=== PATIENT | female | born 1990 | race Two or more races ===

== ENCOUNTER 2017-01-28 20:18 | Emergency (ER) | payer SELFPAY ==
[~2017-01-28] VITALS: Ht 152.4 cm; Wt 98.9 kg
[2017-01-28 23:40] VITALS: BP 145/88
== END 2017-01-29 01:01 | disposition home or self-care (01) ==
LOC: ER 20:18
DX: M25.512 Pain in left shoulder (principal); R51 Headache; V43.52XA Car driver injured in collision with other type car in traffic accident, initial encounter; Y93.89 Activity, other specified; Y92.488 Other paved roadways as the place of occurrence of the external cause; Y99.8 Other external cause status
CPT/HCPCS: 70450; 71010; 72125; 74176